=== PATIENT | female | born 1980 | race Caucasian/White ===

== ENCOUNTER → 2017-01-11 | Outpatient (CLI) | payer OTHER ==
[2017-01-11 12:28] LABS: Basophils % (A) 0 %; CH 30.3; CHCM 32.3; Eosinophils # (A) 0.1 k/uL (0-0.7); Eosinophils % (A) 1 %; HDW 3.15; HGB 10.8 gm/dL (11.4-16.0); Hypochromasia Slight; Luc # (Auto) 0.15; Luc % (Auto) 1; Lymphocytes # (A) 1.9 k/uL (1.0-4.8); Lymphocytes % (A) 14 %; MCH 30.8 pg (25.0-35.0); MCHC 32.6 g/dL (31.0-37.0); MCV 94.4 fL (80.0-100.0); Mean Platelet Volume 8.5; Monocytes # (A) 0.5 k/uL (0-1.0); Monocytes % (A) 3 %; Neutrophils # (A) 11.7 k/uL (1.3-7.7); Neutrophils % (A) 82 %; RDW 12.7 % (11.5-15.5); WBC 14.3 k/uL (3.8-10.6); WBC (Perox) 15.05
[2017-01-11 12:33] LABS: ALT 26 U/L (9-52); AST 14 U/L (14-36); Blood Urea Nitrogen 4 mg/dL (7-17)
== END | disposition home or self-care (01) ==
LOC: LABWHC1 10:33
PROVIDERS: ATTEND Midwife
DX: Z34.83 Encounter for supervision of other normal pregnancy, third trimester (principal)
CPT/HCPCS: 36415; 82950; 84450; 84460; 84520; 85025

== ENCOUNTER 2022-03-10 05:43 | Emergency (ER) | payer OTHER ==
[2022-03-10 06:00] VITALS: RESP 18; TEMP 97.9
[2022-03-10] MEDS ORDERED: SODIUM CHLORIDE 0.9% 1,000 ML IV STA (06:04)
[2022-03-10] MEDS ORDERED: MORPHINE SULFATE 4 MG/ML SYRINGE IVP STA ×2 (06:06→08:27)
[2022-03-10] MEDS ORDERED: LIDOCAINE/EPINEPHR/TETRACAINE 5 ML BOTTLE TOPICAL ONE (06:13)
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
[2022-03-10 08:20] LABS: Basophils % (A) 0 %; Eosinophils # (A) 0.2 k/uL (0-0.7); Eosinophils % (A) 1 %; HCT 38.4 % (34.0-46.0); HGB 12.9 gm/dL (11.4-16.0); Lymphocytes # (A) 1.2 k/uL (1.0-4.8); Lymphocytes % (A) 5 %; MCH 32.1 pg (25.0-35.0); MCHC 33.6 g/dL (31.0-37.0); MCV 95.6 fL (80.0-100.0); Mean Platelet Volume 7.8; Monocytes # (A) 0.8 k/uL (0-1.0); Monocytes % (A) 4 %; Neutrophils # (A) 20.7 k/uL (1.3-7.7); Neutrophils % (A) 90 %; Platelet Count 302 k/uL (150-450); RBC 4.01 m/uL (3.80-5.40); RDW 12.5 % (11.5-15.5); WBC 23.1 k/uL (3.8-10.6)
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
[2022-03-10 08:31] LABS: ALT 131 U/L (4-34); AST 197 U/L (14-36); African American GFR (CKD) >90 (>60 ml/min/1.73 sqM); Albumin 4.2 g/dL (3.5-5.0); Alcohol <10 mg/dL; Alkaline Phosphatase 65 U/L (38-126); Anion Gap 11 mmol/L; Blood Urea Nitrogen 16 mg/dL (7-17); Calcium 8.8 mg/dL (8.4-10.2); Carbon Dioxide 21 mmol/L (22-30); Chloride 105 mmol/L (98-107); Glucose 107 mg/dL (74-99); Non-African American GFR(CKD) 87 (>60 ml/min/1.73 sqM); Partial Thromboplastin Time 22.1 sec (22.0-30.0); Potassium 4.1 mmol/L (3.5-5.1); Sodium 137 mmol/L (137-145); Total Bilirubin 0.6 mg/dL (0.2-1.3); Total Protein 6.6 g/dL (6.3-8.2)
[2022-03-10 08:46] VITALS: BP 113/71; PULSE 80
== END 2022-03-10 09:43 | disposition other institution (70) ==
LOC: EC 05:43
DX: S32.402A Unspecified fracture of left acetabulum, initial encounter for closed fracture (principal); S32.9XXA Fracture of unspecified parts of lumbosacral spine and pelvis, initial encounter for closed fracture; S06.0X9A Concussion with loss of consciousness of unspecified duration, initial encounter; V89.2XXA Person injured in unspecified motor-vehicle accident, traffic, initial encounter
CPT/HCPCS: 93005; 80053; 84484; 85025; 85610; 85730; 80320; 72125; 72132; 70450; 71260; 74177; 99285; 96374; 96376; 96361; J2270; Q9967; 96375

== ENCOUNTER 2023-03-14 22:58 | Emergency (ER) | payer BC, OTHER ==
[2023-03-14] MEDS ORDERED: LORazepam 2 MG/ML INJ IM STA (23:08)
[2023-03-14] MEDS ORDERED: SODIUM CHLORIDE 0.9% 1,000 ML IV STA (23:09)
[2023-03-14 23:12] VITALS: RESP 19; TEMP 99.5
--- NOTE | 2023-03-14 23:45 | ED ---
General Adult HPI - General Chief complaint: Overdose Stated complaint: Anxiety Time Seen by Provider: 03/14/23 23:01 Source: patient Mode of arrival: EMS Limitations: no limitations - History of Present Illness Initial comments: Patient is a 42-year-old female who presents to the emergency department for anxiety. Patient reports smoking a marijuana joint and some edibles tonight.patient feels very high and anxious. She denies other drug use. Denies alcohol use. Denies chest pain and shortness of breath - Related Data Home Medications Medication Instructions Recorded Confirmed Albuterol Inhaler [Ventolin Hfa 2 puff INHALATION RT-Q6H PRN 03/10/22 03/10/22 Inhaler] Dextroamphetamine/Amphetamine 30 mg PO BID@0400,1000 03/10/22 03/10/22 [Adderall] Allergies Allergy/AdvReac Type Severity Reaction Status Date / Time No Known Allergies Allergy Verified 03/10/22 07:56 Review of Systems ROS Statement: Those systems with pertinent positive or pertinent negative responses have been documented in the HPI. ROS Other: All systems not noted in ROS Statement are negative. Past Medical History Past Medical History: No Reported History History of Any Multi-Drug Resistant Organisms: None Reported Past Surgical History: No Surgical Hx Reported Past Psychological History: No Psychological Hx Reported Smoking Status: Never smoker Past Alcohol Use History: None Reported Past Drug Use History: None Reported General Exam Limitations: no limitations General appearance: alert, anxious Head exam: Present: atraumatic, normocephalic, normal inspection Respiratory exam: Present: normal lung sounds bilaterally. Absent: respiratory distress, wheezes, rales, rhonchi, stridor Cardiovascular Exam: Present: regular rate, normal rhythm, normal heart sounds. Absent: systolic murmur, diastolic murmur, rubs, gallop, clicks Neurological exam: Present: alert Skin exam: Present: warm, dry, intact, normal color. Absent: rash Course Vital Signs 03/14/23 03/15/23 23:01 01:10 Temperature 99.5 F Pulse Rate 121 H 90 Respiratory 19 19 Rate Blood Pressure 156/99 123/83 O2 Sat by Pulse 100 100 Oximetry Medical Decision Making - Medical Decision Making EKG taken at 23:26, interpreted by myself Sinus tachycardia, no ST elevation Ventricular rate 112, TX interval 124, QRS duration 81, QTc 393 Was pt. sent in by a medical professional or institution (ELDON Mackey, INTERNAL CONTROLS SPECIALIST, urgent care, hospital, or [facility]...) When possible be specific @ -No Did you speak to anyone other than the patient for history (EMS, parent, family, police, friend...)? What history was obtained from this source @ -No Did you review nursing and triage notes (agree or disagree)? Why? @ -I reviewed and agree with nursing and triage notes Were old charts reviewed (outside hosp., previous admission, EMS record, old EKG, old radiological studies, urgent care reports/EKG's, [facility] records)? Report findings @ -No old charts were reviewed Differential Diagnosis (chest pain, altered mental status, abdominal pain women, abdominal pain men, vaginal bleeding, weakness, fever, dyspnea, syncope, headache, dizziness, GI bleed, back pain, seizure, CVA, palpatations, mental health)? @ panic attack, intoxication, overdose EKG interpreted by me (3pts min.). @ -As above X-rays interpreted by me (1pt min.). @ -None done CT interpreted by me (1pt min.). @ -None done U/S interpreted by me (1pt. min.). @ -None done What testing was considered but not performed or refused? (CT, X-rays, U/S, labs)? Why? @ -None What meds were considered but not given or refused? Why? @ -None Did you discuss the management of the patient with other professionals (professionals i.e. ELDON Mackey, INTERNAL CONTROLS SPECIALIST, lab, RT, psych nurse, social work nurse, mineral surveyor, teacher, community liaison officer, casework manager)? Give summary @ -No Was smoking cessation discussed for >3mins.? @ -I discussed smoking cessation for greater than 3 minutes. The risk of smoking were discussed with the patient including but not limited to risks of cancer, stroke, coronary artery disease and COPD. Also discussed with patient were multiple methods of quitting smoking. Lastly we discussed the financial cost of smoking. Was critical care preformed (if so, how long)? @ -No Were there social determinants of health that impacted care today? How? (Homelessness, low income, unemployed, alcoholism, drug addiction, transportation, low edu. Level, literacy, decrease access to med. care, snf, rehab)? @ -No Was there de-escalation of care discussed even if they declined (Discuss DNR or withdrawal of care, Hospice)? DNR status @ -No What co-morbidities impacted this encounter? (DM, HTN, Smoking, COPD, CAD, Cancer, CVA, ARF, Chemo, Hep., AIDS, mental health diagnosis, sleep apnea, morbid obesity)? @ -None Was patient admitted / discharged? Hospital course, mention meds given and route, prescriptions, significant lab abnormalities, going to OR and other pertinent info. @ -42-year-old presenting with anxiety after marijuana use. Patient very anxious during evaluation she appears to be having a panic attack. Ativan was givenfor panic attack. Patient given IV fluids and observed her symptoms improved. Reevaluation patient is calm and collected she feels better and will be discharged home. Undiagnosed new problem with uncertain prognosis? @ -No Drug Therapy requiring intensive monitoring for toxicity (Heparin, Nitro, Insulin, Cardizem)? @ -No Were any procedures done? @ -No Diagnosis/symptom? @ -anxiety, marijuana intoxication Acute, or Chronic, or Acute on Chronic? @ -acute Uncomplicated (without systemic symptoms) or Complicated (systemic symptoms)? @ -uncomplicated Side effects of treatment? @ -No Exacerbation, Progression, or Severe Exacerbation? @ -No Poses a threat to life or bodily function? How? (Chest pain, USA, CT, pneumonia, PE, COPD, DKA, ARF, appy, cholecystitis, CVA, Diverticulitis, Homicidal, Suicidal, threat to staff... and all critical care pts) @ -No Dr. Perez is my attending Disposition Clinical Impression: Anxiety, Marijuana intoxication Disposition: HOME SELF-CARE Condition: Good Instructions (If sedation given, give patient instructions): Adult Overdose (ED) Additional Instructions: Follow up with primary care provider in 1-2 days. Return to the ED if you experience new, worsening, or concerning symptoms. Is patient prescribed a controlled substance at d/c from ED?: No Referrals: None,Stated [Primary Care Provider] - 1-2 days
[2023-03-15 01:14] VITALS: BP 123/83; PULSE 90
== END 2023-03-15 01:24 | disposition home or self-care (01) ==
LOC: EC 22:58
DX: F41.9 Anxiety disorder, unspecified (principal); F12.929 Cannabis use, unspecified with intoxication, unspecified
CPT/HCPCS: 93005; 99284; 96360; 96372; J2060

== ENCOUNTER 2024-12-25 22:29 | Emergency (ER) | payer BC, OTHER ==
[2024-12-25 22:34] VITALS: RESP 18
--- NOTE | 2024-12-25 23:13 | ED ---
General Adult HPI - General Source: patient, RN notes reviewed Mode of arrival: ambulatory Limitations: no limitations <Daisy Harris - Last Filed: 12/25/24 23:11> <Araceli Magaña - Last Filed: 12/26/24 01:36> - General Chief complaint: Recheck/Abnormal Lab/Rx Stated complaint: Heat exhaustion Time Seen by Provider: 12/25/24 22:40 - History of Present Illness Initial comments: Quick [id number] female presenting to the ER with concerns for heat exhaustion. 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 States that she needs to go back to work tomorrow and is not feeling well. (Daisy Harris) Patient is a 44-year-old female presenting today for muscle cramps, concern for heat exhaustion. 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 Over the last 2 weeks when she arrives at work, she experiences muscle cramps in her shoulders, mild headaches and lightheadedness. States she was seen in the ER for this previously and has been of of work the last few days and needs to return to work tomorrow but is unsure if she can. States she has been drinking liquid IV. States she no w wonders if it 2/2 to anxiety because she has had some recent stressful events in her life recently, including a fungal infection"everywhere". States it is on her hands, feet and in her hair. Was started on terbinafine by local urgent care. Has since stopped it and states her PCP will not continue her on it which makes her very anxious. States headaches are mild in nature, not severe. Denies associated changes in vision, numbness, weakness, slurred speech. Denies chest pain or shortness of breath. Denies abdominal pain, nausea, vomiting or diarrhea. Denies darkening urine, dysuria or urinary frequency. Denies hematuria. Denies lower extremity swelling. States her temperature was 99.6 degrees earlier otherwise denies fevers. (Araceli Magaña) - Related Data Home Medications Medication Instructions Recorded Confirmed Albuterol Inhaler [Ventolin Hfa 2 puff INHALATION RT-Q6H PRN 03/10/22 03/10/22 Inhaler] Dextroamphetamine/Amphetamine 30 mg PO BID@0400,1000 03/10/22 03/10/22 [Adderall] Allergies Allergy/AdvReac Type Severity Reaction Status Date / Time No Known Allergies Allergy Verified 12/25/24 22:34 Review of Systems ROS Other: All systems not noted in ROS Statement are negative. <Daisy Harris - Last Filed: 12/25/24 23:11> ROS Other: All systems not noted in ROS Statement are negative. <Araceli Magaña - Last Filed: 12/26/24 01:36> ROS Statement: Those systems with pertinent positive or pertinent negative responses have been documented in the HPI. Past Medical History Past Medical History: No Reported History History of Any Multi-Drug Resistant Organisms: None Reported Past Surgical History: No Surgical Hx Reported Past Psychological History: No Psychological Hx Reported Smoking Status: Current every day smoker Past Alcohol Use History: None Reported Past Drug Use History: None Reported <Daisy Harris - Last Filed: 12/25/24 23:11> General Exam Limitations: no limitations <Daisy Harris - Last Filed: 12/25/24 23:11> <Araceli Magaña - Last Filed: 12/26/24 01:36> - General Exam Comments Initial Comments: Visual Physical Exam Vital signs reviewed General: Well-appearing, nontoxic, no acute distress. Head: Normocephalic, atraumatic Eyes: PERRLA, EOMI ENT: Airway patent Chest: Nonlabored breathing Skin: No visual rash, normal skin tone Neuro: Alert and oriented 3 Musculoskeletal: No gross abnormalities (Stieler,Daisy) PE: CONSTITUTIONAL: No apparent distress, well appearing SKIN: Warm, dry, no jaundice, hives or petechiae EYES: Pupils are equally round, extraocular movements intact without nystagmus, clear conjunctiva, non-icteric sclera HENT: Normocephalic, atraumatic, moist mucus membranes, oropharynx clear without exudates NECK: , Full range of motion, normal appearance PULMONARY: Clear to auscultation without wheezes, rhonchi, or rales, normal excursion, no accessory muscle use and no stridor CARDIOVASCULAR: Regular rate, rhythm, normal S1 and S2. No appreciated murmurs, rubs or gallops. Strong radial pulses with intact distal perfusion. GASTROINTESTINAL: Soft, active bowel sounds throughout, non-tender, non- distended, no palpable masses, no rebound or guarding. No hepatosplenomegaly GENITOURINARY: MUSCULOSKELETAL: Extremities have no gross deformity, no edema, redness, or swelling. NEUROLOGIC:_a/o x 3, GCS 15, normal mentation and speech. Moves all extremities x 4 without motor or sensory deficit PSYCHIATRIC:_normal mood and affect, thought process is clear and linear (Araceli Magaña) Course Vital Signs 12/25/24 12/26/24 22:31 01:10 Temperature 97.5 F L 98.2 F Pulse Rate 92 78 Respiratory 18 18 Rate Blood Pressure 159/82 132/99 O2 Sat by Pulse 98 100 Oximetry EKG Findings - EKG Comments: EKG Findings:: Sinus rhythm, rate 70 beats minute intervals within acceptable limits, normal axis, no significant ST elevations or T wave changes <Araceli Magaña - Last Filed: 12/26/24 01:36> Medical Decision Making <Daisy Harris - Last Filed: 12/25/24 23:11> - Lab Data Result diagrams: 12/25/24 23:45 12/25/24 23:45 <Araceli Magaña - Last Filed: 12/26/24 01:36> - Medical Decision Making I completed the quick note portion of this chart signed Daisy Harris PA-C (Daisy Harris) Was pt. sent in by a medical professional or institution ([facility], [facility], urgent care, hospital, or senior living...) When possible be specific @ -No Did you speak to anyone other than the patient for history (EMS, parent, family, police, friend...)? What history was obtained from this source @ -No Did you review nursing and triage notes (agree or disagree)? Why? @ -I reviewed nursing and triage notes Were old charts reviewed (outside hosp., previous admission, EMS record, old EKG, old radiological studies, urgent care reports/EKG's, senior living records)? Report findings @ -Medical records reviewed Differential Diagnosis (chest pain, altered mental status, abdominal pain women, abdominal pain men, vaginal bleeding, weakness, fever, dyspnea, syncope, headache, dizziness, GI bleed, back pain, seizure, CVA, palpatations, mental health, musculoskeletal)? Differential diagnosis remains broad over top considerations include dehydration,anxiety, hypovolemia, arrythmia, anemia, malingering this is not an all inclusive list EKG interpreted by me (3pts min.). @ -As above X-rays interpreted by me (1pt min.). @ -None done CT interpreted by me (1pt min.). @ -None done U/S interpreted by me (1pt. min.). @ -None done What testing was considered but not performed or refused? (CT, X-rays, U/S, labs)? Why? @ -None What meds were considered but not given or refused? Why? @ -None Did you discuss the management of the patient with other professionals (professionals i.e. , PA, [facility], lab, RT, psych nurse, socially responsible investment adviser, mail technician, teacher, medical information officer, case fitter)? Give summary @ -No Was smoking cessation discussed for >3mins.? @ -No Was critical care preformed (if so, how long)? @ -No Were there social determinants of health that impacted care today? How? (Homelessness, low income, unemployed, alcoholism, drug addiction, transportation, low edu. Level, literacy, decrease access to med. care, detention, rehab)? @ -No Was there de-escalation of care discussed even if they declined (Discuss DNR or withdrawal of care, Hospice)? @ -No What co-morbidities impacted this encounter? (DM, HTN, Smoking, COPD, CAD, Canc er, CVA, ARF, Chemo, Hep., AIDS, mental health diagnosis, sleep apnea, morbid obesity)? @ -None Was patient admitted / discharged? Hospital course, mention meds given and route, prescriptions, significant lab abnormalities, going to OR and other pertinent info. @ -[id number]-old female presenting today for out of concern for heat exhaustion. Was recently allowed time off work for concern for heat exhaustion is post return tomorrow. Is worried that her symptoms will recur upon returning to work. Patient initially seen and assessed in the waiting room, obtained patient's permission to perform assessment to gather history in the waiting room. Vital signs significant for blood pressure 159/82. Initially seen and assessed by triage provider who ordered CBC, CMP and magnesium level. Reviewed these labs which were unremarkable. An EKG was obtained which showed sinus rhythm. On my assessment pt is well appearing in NAD. Does have an anxious affect and some rapid speech but otherwise is conversant, pleasant, oriented. MMM. Of note patient endorses anxiety over a fungal infection however I am unable to visualize this states it is on her hands however no erythema, rashes or lesions noted on hands, as well as concerned it is on her feet, however politely declined to have her feet examined despite myself offering multiple times, even once roomed. Pt will follow up with PCP regarding this. Patient was provided with IV hydration. I discussed with the patient findings and plan for discharge, encouraged her to drink plenty of fluids and to be sure to follow-up with her primary care provider regarding today's visit. I did tell the patient she was cleared to return to work however she is worried her symptoms will recur upon returning to work tomorrow. I discussed with her that should she have return of symptoms, worsening or persistent symptoms she should return to t ER immediately. Additionally we discussed additional signs symptoms to monitor for such as fevers, chest pain, difficulty in breathing and should she experience these should return to the ER. Patient verbalized understanding. Stable for discharge. In my medical judgment there is currently no evidence of an immediate life- threatening or surgical condition. Discharge is therefore indicated at this time. Discharge treatment instructions, follow up instructions, and appropriate emergency department return precautions were discussed with the patient and/or medical decision maker. Patient and/or medical decision maker expressed understanding of and agreed with the treatment plan, follow up instructions, and emergency department return precaution. All patient's and/or medical decision maker's questions were answered. The patient was therefore instructed to return to the ED for any changes in symptoms, persistent symptoms, inability to obtain proper follow-up or for any further concerns. Patient received verbal and written instructions for this condition. Undiagnosed new problem with uncertain prognosis? @ -No Drug Therapy requiring intensive monitoring for toxicity (Heparin, Nitro, Insulin, Cardizem)? @ -No Were any procedures done? @ -No Diagnosis/symptom? @Anxiety, muscle spasms Acute, or Chronic, or Acute on Chronic? @ -Acute Uncomplicated (without systemic symptoms) or Complicated (systemic symptoms)? @Uncomplicated Side effects of treatment? @ -No Exacerbation, Progression, or Severe Exacerbation? @ -No Poses a threat to life or bodily function? How? (Chest pain, [place], [place], pneumonia, PE, COPD, DKA, ARF, appy, cholecystitis, CVA, Diverticulitis, Homicidal, Su[place] charlie, threat to staff... and all critical care pts) @ -No (Araceli Magaña) - Lab Data Lab Results 12/25/24 12/25/24 Range/Units 23:45 23:45 WBC 7.92 (4.50-10.00) 10*3/uL RBC 4.21 (4.10-5.20) 10*6/uL Hgb 13.4 (12.0-15.0) g/dL Hct 39.0 (37.2-46.3) % MCV 92.6 (80.0-97.0) fL MCH 31.8 (27.0-32.0) pg MCHC 34.4 (32.0-37.0) g/dL Plt Count 269 (140-440) 10*3/uL MPV 9.0 L (9.5-12.2) fL Immature Gran % (Auto) 0.1 % Neutrophils % 55.1 % Lymphocytes % 36.5 % Monocytes % 6.2 % Eosinophils % 1.5 % Basophils % 0.6 % Immature Gran # 0.01 (0.00-0.04) 10*3/uL Neutrophils # 4.36 (1.80-7.70) 10*3/uL Lymphocytes # 2.89 (0.90-5.00) 10*3/uL Monocytes # 0.49 (0.20-1.00) 10*3/uL Eosinophils # 0.12 (0.04-0.35) 10*3/uL Basophils # 0.05 (0.00-0.10) 10*3/uL Sodium 137 (137-145) mmol/L Potassium 4.2 (3.5-5.1) mmol/L Chloride 100 (98-107) mmol/L Carbon Dioxide 25 (22-30) mmol/L Anion Gap 12 mmol/L BUN 16 (7-17) mg/dL Creatinine 0.72 (0.52-1.04) mg/dL Est GFR (CKD-EPI)AfAm >90 (>60 ml/min/1.73 sqM) Est GFR (CKD-EPI)NonAf >90 (>60 ml/min/1.73 sqM) Glucose 98 (74-99) mg/dL Calcium 9.9 (8.4-10.2) mg/dL Magnesium 1.9 (1.6-2.3) mg/dL Total Bilirubin 0.5 (0.2-1.3) mg/dL AST 22 (14-36) U/L ALT 20 (4-34) U/L Alkaline Phosphatase 62 (38-126) U/L Total Protein 7.5 (6.3-8.2) g/dL Albumin 4.6 (3.5-5.0) g/dL Disposition <Daisy Harris - Last Filed: 12/25/24 23:11> Is patient prescribed a controlled substance at d/c from ED?: No <Araceli - Last Filed: 12/26/24 01:36> Clinical Impression: Anxiety, Muscle cramps Disposition: HOME SELF-CARE Condition: Good Instructions (If sedation given, give patient instructions): Muscle Cramp (ED), Anxiety (ED), Anxiolysis in Adults (ED) Additional Instructions: Every disease is a spectrum and a small chance still exists that a serious condition could develop, for this reason, please monitor yourself closely for new, changing or worsening symptoms, symptoms that persist beyond 48 hours, chest pain, difficulty in breathing, loss of consciousness, fever, inability to tolerate/keep down fluids or your medications, inability to follow up with outpatient providers as instructed and should you experience these symptoms or should you have any further concerns for your wellbeing please return to the ED or call 911 immediately. Please drink plenty of electrolyte rich fluids and get plenty of rest. PLEASE call your primary care physician as soon as possible to arrange / discuss plan for followup appointment. Appointment in the next 1-3 days is strongly encouraged if possible. PLEASE let us know here before you leave if there is anything further we can do to be of any assistance. Take care and feel Better! Referrals: Nonstaff,Physician [Primary Care Provider] - 1-2 days
[2024-12-25 23:52] LABS: Basophils # (A) 0.05 10*3/uL (0.00-0.10); Basophils % (A) 0.6 %; Eosinophils # (A) 0.12 10*3/uL (0.04-0.35); Eosinophils % (A) 1.5 %; HCT 39.0 % (37.2-46.3); HGB 13.4 g/dL (12.0-15.0); Lymphocytes # (A) 2.89 10*3/uL (0.90-5.00); Lymphocytes % (A) 36.5 %; MCH 31.8 pg (27.0-32.0); MCHC 34.4 g/dL (32.0-37.0); MCV 92.6 fL (80.0-97.0); Monocytes # (A) 0.49 10*3/uL (0.20-1.00); Monocytes % (A) 6.2 %; Neutrophils # (A) 4.36 10*3/uL (1.80-7.70); Neutrophils % (A) 55.1 %; Platelet Count 269 10*3/uL (140-440); RBC 4.21 10*6/uL (4.10-5.20); RDW 11.8 % (11.5-14.5); WBC 7.92 10*3/uL (4.50-10.00)
[2024-12-26 00:11] LABS: ALT 20 U/L (4-34); AST 22 U/L (14-36); African American GFR (CKD) >90 (>60 ml/min/1.73 sqM); Albumin 4.6 g/dL (3.5-5.0); Alkaline Phosphatase 62 U/L (38-126); Anion Gap 12 mmol/L; Blood Urea Nitrogen 16 mg/dL (7-17); Calcium 9.9 mg/dL (8.4-10.2); Carbon Dioxide 25 mmol/L (22-30); Chloride 100 mmol/L (98-107); Glucose 98 mg/dL (74-99); Magnesium 1.9 mg/dL (1.6-2.3); Non-African American GFR(CKD) >90 (>60 ml/min/1.73 sqM); Potassium 4.2 mmol/L (3.5-5.1); Sodium 137 mmol/L (137-145); Total Protein 7.5 g/dL (6.3-8.2)
[2024-12-26] MEDS: SODIUM CHLORIDE 0.9% 1,000 ML IV ONE (01:09)
[2024-12-26 01:11] VITALS: BP 132/99; PULSE 78; TEMP 98.2
== END 2024-12-26 01:15 | disposition home or self-care (01) ==
LOC: EC 22:29
DX: F41.9 Anxiety disorder, unspecified (principal); R25.2 Cramp and spasm; F17.200 Nicotine dependence, unspecified, uncomplicated
CPT/HCPCS: 36415; 80053; 83735; 85025; 93005; 99284